=== PATIENT | female | born 1950 | race Caucasian/White ===

== ENCOUNTER → 2021-04-11 15:47 | Outpatient (CLI) | payer MEDICARE, OTHER, SELFPAY ==
[2021-04-11 16:48] LABS: Add Manual Diff / Slide Review NO; Basophils Absolute Auto 100 /uL (0-100); Eosinophils Absolute Auto 100 /uL (0-450); Hematocrit 40.6 % (36-46); Hemoglobin 13.8 g/dL (12.0-16.0); Lymphocytes Absolute Auto 1700 /uL (1100-4500); Lymphocytes Percent Auto 24.2 % (25-40); Mean Corpuscular HGB Conc 33.9 % (30-36); Mean Corpuscular Hemoglobin 31.2 PG (26-34); Mean Corpuscular Volume 92.2 fL (80-100); Monocytes Absolute Auto 600 /uL (0-900); Monocytes Percent Auto 8.5 % (3-14); Neutrophils Absolute Auto 4500 /uL (1500-7000); Neutrophils Percent Auto 64.3 % (50-75); Platelet Count 308 X10^3/uL (150-400); Red Blood Cell Count 4.41 X10^6/uL (4.0-5.2); Red Cell Distribution Width 13.3 % (11.6-14.8)
[2021-04-11 16:54] LABS: Hemoglobin A1C% w Est Avg Glu 5.4 % (4.0-6.0)
[2021-04-11 17:34] LABS: BUN Creatinine Ratio 24.7 (6-22); Blood Urea Nitrogen 19 mg/dL (7-17); Calcium 10.1 mg/dL (8.4-10.2); Carbon Dioxide 32 mmol/L (22-32); Chloride 101 mmol/L (98-107); Estimated Glomerular Filt Rate > 60.0 mL/min (>60); Glucose 99 mg/dL (80-110); HEMOLYSIS < 15 (0-50); Potassium 4.3 mmol/L (3.4-5.1); Sodium 140 mmol/L (137-145)
== END ==
PROVIDERS: PCP Internal Medicine; Referring Provider Orthopaedic Surgery; Visit Provider Orthopaedic Surgery
DX: Z01.818 Encounter for other preprocedural examination (principal); R73.9 Hyperglycemia, unspecified; M25.561 Pain in right knee; Z01.812 Encounter for preprocedural laboratory examination
CPT/HCPCS: 36415; 80048; 83036; 85025; 93005; 93010

== ENCOUNTER → 2021-05-02 10:07 | Outpatient (CLI) | payer MEDICARE, OTHER, SELFPAY ==
[2021-05-02 11:15] LABS: COVID19 -Nasal RAPID Negative (Negative)
== END ==
PROVIDERS: PCP Internal Medicine; Visit Provider Nurse Practitioner Family
DX: Z20.822 Contact with and (suspected) exposure to COVID-19 (principal)
CPT/HCPCS: 87635; C9803

== ENCOUNTER 2021-05-05 06:02 | Day surgery (SDC) | payer MEDICARE, OTHER, SELFPAY ==
[2021-04-28 13:44] VITALS: BMI 22.3
[2021-05-05] VITALS (16 sets, daily range): BP systolic 89–146; BP diastolic 44–96; PULSE 64–100; RESP 10–18; TEMP 36.2–36.7; O2SAT 91–100; BMI 22.3
--- NOTE | 2021-05-05 06:00 | DI.RAD.S_ITS ---
PROCEDURE: XR KNEE RT 1TO2V INDICATIONS: post op total knee TECHNIQUE: 2 view(s) of the knee acquired. COMPARISON: None. FINDINGS: Bones: Patient is status post knee joint arthroplasty. Hardware components are in expected positions. Visualized bony structures are intact. Soft tissues: Overlying postoperative changes are noted. IMPRESSION: Expected immediate postoperative appearance, status post total right knee arthroplasty. Dictated by: Saman Szymanski M.D. on 05/05/2021 at 10:45 Approved by: Saman Szymanski M.D. on 05/05/2021 at 10:45
[2021-05-05] MEDS: ACETAMINOPHEN 325 MG TABLET 975 MG PO (06:55)
[2021-05-05] MEDS: CELECOXIB 200 MG CAPSULE PO (06:56)
[2021-05-05] MEDS: PREGABALIN 75 MG CAPSULE PO (06:56)
[2021-05-05] MEDS: LACTATED RINGERS 1,000 ML 42 ML IV (07:13)
--- NOTE | 2021-05-05 07:35 | PM.PREOP ---
Pre-operative Note COVID-19 COVID-19 status: Negative Result date/Date tested (Pos, Neg/Pending): 05/02/21 Interval Note History & Physical reviewed/Exam performed by Physician: Yes Changes to H&P: No
--- NOTE | 2021-05-05 07:36 | P.DS_ITS ---
History of Present Illness History of Present Illness Chief complaint: Right Total Knee Arthroplasty *OPB* Discharge Providers Provider Primary care physician: Billy Russell MD Consults: 05/05/21 06:00 Consult to Anesthesiology Routine Comment: Consulting Provider: Anesthesiologist Reason for consultation: Regional block for post operative pain control Discharge provider: Peter Reyes MD Exam Vital Signs (past 8 hours): - 05/05/21 06:48 Temperature 97.6 F Pulse Rate 100 H Respiratory Rate 18 Blood Pressure 146/89 H Pulse Oximetry 100 Oxygen Delivery Method Room Air [facility] Medical History (Updated 04/28/21 @ 14:09 by Dina Salas RN) Asthma Eczema Osteoarthritis Surgical History (Updated 10/05/17 @ 06:12 by Conversion Provider) History of tonsillectomy Status post dilation and curettage Family History (Updated 09/08/16 @ 00:00 by Conversion Provider) Grandmother Stroke Sister Age: 64 Hypertension High cholesterol Social History household members: spouse Smoking Status: Never smoker alcohol intake: current Discharge Plan Discharge orders & Medications Prescriptions: No Action ibuprofen [Advil] 200 mg Tablet 400 mg PO DAILY 0RF albuterol sulfate 90 mcg/actuation Hfa Aerosol Inhaler 2 puff INHALATION Q4-6H PRN (Reason: Asthma) 0RF Follow up/Referrals: Billy Russell MD [Primary Care Provider] - Discharge Data Primary Care Provider: Billy Russell Attending Provider: Peter Reyes
--- NOTE | 2021-05-05 07:36 | PM.OP.1 ---
Operative Date/Time/Diagnoses Date of procedure: 05/05/21 Time of procedure: 09:18 Pre-op diagnosis: Right knee osteoarthritis Post-op diagnosis: same Procedure & Clinicians Procedure: Right total knee replacement Same procedure as scheduled: Yes Indications: The patient has had progressively worsening right knee pain with radiographic changes consistent with arthritis. Non-operative management has failed and the patient has requested total knee replacement. The risks, benefits and alternatives to surgery were discussed with the patient prior to proceeding. Risks discussed included, but were not limited to, failure to relieve pain, stiffness, infection, nerve damage, deep venous thrombosis, pulmonary embolism, stroke, coma, heart attack, permanent paralysis and , as well as the potential need for eventual revision of the prosthetic. Surgeon: Peter Reyes Field Radio Operator: Uvaldo Montana Click Yes if Unassisted: No Anesthesia Type: General, Spinal and Local Operative Notes Findings: Severe lateral and moderate medial and patellofemoral osteoarthritis Closure Type: primary Specimen(s): none sent Prosthetic devices, grafts, tissues, transplants, or devices: Implants used in this procedure were manufactured by the [employer] and [employer] and included the BCS II Journey total knee replacement with a size 3 Oxinium femoral component, a size 3 right non porous tibial base plate, a 9 mm cross-linked polyethylene tibial insert and a 29 mm oval Jessica II patella. Applied: implant(s) Estimated Blood Loss (mL): 25 Blood products transfused: none Tourniquet time (min): 43 Procedure in detail: The patient was seen in the pre-operative area, where the patient identified the right knee as the operative site and this was marked with my initials. The patient received pre-operative antibiotics, and was taken to the operating room and placed on the operative table in the supine position. After satisfactory anesthesia, a barometers calibrator out was performed. The right leg was encircled with a tourniquet about the proximal thigh, and the leg was prepared from the toes to the tourniquet with ChloroPrep in the usual fashion and draped through sterile drapes. The leg was elevated and exsanguinated with Eschmark bandage and the tourniquet inflated to 250 mmHg pressure. The knee was approached through an approximately 14 cm incision centered over the patella and carried into the knee through a medial parapatellar arthrotomy. The anterior osteophytes and soft tissues were removed. The rotational landmarks of Latimer's line and the transepicondylar axis were marked on the femur with electrocautery, and intramedullary guide holes for the femur and tibia were created. The distal femoral cut was made in 6 degrees of valgus using the intramedullary guide at the primary cut setting. The proximal tibial cut was then made using the intramedullary guide, taking 9 mm of bone off the less involved side. The extension gap was checked and the rotation of the femoral component confirmed with the gap balancing system. The anterior, posterior and chamfer cuts were then made. The posterior osteophytes and soft tissues were then removed. The posterior capsule was injected with part of a mixture of 50 ml 0.25% Marcaine mixed with 20 ml Exparel and 4 mg of morphine for post-operative pain control. The remainder of this mixture was injected into the capsule and subcutaneous tissues during cement curing. The tibia was prepared with the rotation set by an extra medullary guide. Trial tibial and femoral components were then placed and the intercondylar notch cut through the femoral trial. Range of motion was 0-135 degrees, with good stability throughout the range. The patella was then cut to accommodate the patellar prosthetic. There was no need for a lateral release. The trials were then removed, and the femoral hole plugged with a bone plug. The bone was prepared with pulsatile lavage, and dried with a sponge. Cement was applied and the final prosthetics placed. Excess cement was removed during and after cement curing. After confirming there was no extruded cement posteriorly, the final tibial insert was placed. The knee was copiously irrigated and the tourniquet deflated. Hemostasis was obtained. The capsule was closed with interrupted # 2 polyester suture. The subcutaneous layer was closed with 3-0 Vicryl, and the skin with a running 3-0 V-Lock suture and Dermabond. An Aquacel Ag dressing was applied and the patient was taken to recovery having tolerated the procedure well. Post-operative Condition: stable Disposition: PACU Plan for aftercare: The patient will be maintained on a standard total knee replacement protocol with weight bearing as tolerated. The patient will receive aspirin and sequential compression devices for DVT prophylaxis. The patient will be discharged home when safe for the home environment.
[2021-05-05] MEDS: CEFAZOLIN 2 GM/20 ML SYRINGE IV (08:03)
[2021-05-05] MEDS: TRANEXAMIC ACID 1,000 MG VIAL 1000 MG INJ ×2 (08:05→08:55)
--- NOTE | 2021-05-05 08:12 | SUR.OPER ---
Supine on padded OR bed. Pillow under head, arms secured on padded armboards <90 degree abduction. Safety belt across torso. Non-operative leg secured with tape over blanket over lower leg. Operative leg secured in DeMayo positioner and in control of the Surgeon.
[2021-05-05] MEDS: BUPIVACAINE LIPOSOME 266 MG/20 ML VIAL INJ (08:24)
[2021-05-05] MEDS: BUPIVACAINE 0.25% (PF) 60 ML, EPINEPHrine 0.3 MG INJ (08:24)
[2021-05-05] MEDS: MORPHINE 4 MG/ML INJ INJ (08:24)
[2021-05-05] MEDS: fentaNYL 100 MCG/2 ML INJ IV (09:40)
--- NOTE | 2021-05-05 11:11 | SUR.PHASEI ---
Bed now available, report called to Pooja, pt transported up to room 212 and left with Pooja and left in stable condition. Bed low, locked SACD'S on and call light near by.
[2021-05-05] MEDS: LACTATED RINGERS 1,000 ML 100 ML IV ×2 (11:25→22:02)
[2021-05-05] MEDS: ONDANSETRON 4 MG/2 ML INJ IV (14:08)
--- NOTE | 2021-05-05 14:31 | PT.IIE ---
Current Diagnoses Unilateral primary osteoarthritis, right knee (05/05/21) Surgery Performed Operation Date: 05/05/21 07:45 Actual Procedures p Total Knee Arthroplasty(Right) - Peter Reyes MD Surgical History History of tonsillectomy Status post dilation and curettage Medical History (Last Updated 04/28/21 @ 14:09 by Dina Salas RN) Asthma Eczema Osteoarthritis Physical Therapy Inpatient Evaluation/Re-Eval M1 PT/OT-IP Prior Functional Status Start: 05/05/21 11:19 Freq: NEEDED Status: Active Protocol: Document 05/05/21 14:31 JG (Rec: 05/05/21 15:19 J [id number]) Medical Review Prior Functional Status Medical History Reviewed Yes Diet/Fluid Consistency Regular Communication Pt was able communicate fully Mobility and Gait Pt was limited with transfers and amb due to pain. Pt avoids stairs if possible. Indep w/o AD. Other than stairs, no meaningful limit. Activities of Daily Living and IADL's Indep w/all ADLs Prior Functional Level (Other details) Pt feels that she does better, kaylan w/bilat knee pain, when she works out and does yoga Social History Household Members spouse Living Arrangements House Number of Floors (Floors) One Floor Number of Stairs To Enter/Railing? 2 steps to enter, no railing Home Environment Standard Height Toilet,Walk in Shower,Built-In Shower Seat Home Equipment Front Wheel Walker,Hand Held Shower,Long Handled Shoe Horn, Sock Aid,Grab Bars In Shower Employment Status Retired Additional Social History Comment Has two daughters. Erik was in room, asked caregiving questions, and will serve as caregiver. He has no physical or time limitations. M2 PT-IP Current Condition Start: 05/05/21 11:19 Freq: NEEDED Status: Active Protocol: Document 05/05/21 14:31 JG (Rec: 05/05/21 15:19 J [id number]) Physical Therapy Current Condition Current Condition Evaluation Date 05/05/21 Treatment Diagnosis S/P R TKA, difficulty walking, limited mobility 2 pain, limited R knee ROM Onset Date 05/05/21 M3 PT-IP Subjective Start: 05/05/21 11:19 Freq: NEEDED Status: Active Protocol: Document 05/05/21 14:31 JG (Rec: 05/05/21 15:19 Karley [id number]) Subjective Physical Therapy Visit Type Type Initial Evaluation Visit Start Time 13:35 Visit Stop Time 14:31 Total Visit Minutes 56 Notes SPT Cristin was directly supervised by DARLENE Courtney Number of IMCU NURSE Visits 0 Physical Therapy Visit Comments Patient Comments Pt said she is comparing this R TKA to labor and 3 D&C due to hemmoraging and TKA is harder. Pt asked several questions about norms after TKA surgery and sought to validate that her response was WNL. Pt states that she has been feeling woozy since surgery which has gradually been decreasing. Patient Goals Amb and transfer without pain. Workout without pain. Therapy Pain Assessment Pain When Pain Assessed rest, move Pain Present Pain Present Denied Pain Location Right Knee Intensity 0 Scale Used Numeric (0 - 10) M4 PT-IP Mobility and Gait Start: 05/05/21 11:19 Freq: NEEDED Status: Active Protocol: Document 05/05/21 14:31 SANTY (Rec: 05/05/21 15:19 Karley [id number]) PT-Bed Mobility Assessment Rolling Type of Rolling Roll to Left Level of Assist Standby Assistance Supine to Sit Supine to Sit Standby Assistance Scooting Scooting to Edge of Bed Standby Assistance PT-Transfer Assessment Sit to and From Stand Sit to and from Stand Minimal Assistance,1 Person Assistance Equipment Transfer Assistive Device Gait Belt,Front Wheeled Walker Transfers Transfer Destination Chair,Toilet Transfer Technique from amb Transfer Ability Level of Assist Minimal Assistance,1 Person Assistance Comments Mobility Comments Pt typically has low BP and is currently mildy nauseous. In bed, vitals were: 121/79, 71 bpm. Due to this pt stayed at EOB, in standing, and seated for 1-2 minutes before progressing to next transfer or gait activity. Pt was SBA for bed mob w/cueing for strageties and confidence. During transfers and gait, min A w/FWW and gait belt was req due to nausea and decreased sensation in R LE. Pt also had difficulty moving her R foot from a PF and inverted resting foot position which is atypical. Pt was able to flatten R foot with SPT tactile and verbal cueing as well as increased attention and time moving through R stance phase. Pt became had increase in nausea and clammy sensation during mobility. This resulted in vomiting while attempting to void on the toilet. After rest, pt was able to amb to bed w/FWW and min A. Pt was given anti- nausea med by RN. At EOB vitals were: 138/88, 91 bpm. In standing vitals were: 156/ 81, 81 bpm. In chair vitals were: 139/87, 85 bpm. On toilet vitals were: 130/83, 86 bpm. In bed at end of session vitals were: 11/78, 88 bpm. Gait Assessment Gait Gait Assistance Required: Minimum Assistance,1 Person Assist Distance (Feet) 25 Able to Maintain Weight Bearing Status Yes During Gait Assistive Devices Assistive Device Gait Belt,Front Wheeled Walker Gait Deviations General Gait Pattern Antalgic,Decreased Stride Length,Decreased Feet Clearance Factors Limiting Gait Function Factors Limiting Gait Function Decreased Activity Tolerance, Decreased Sensation Comments Gait Comments See mobility comments Stair Climbing Assessment Comments Stair Climbing Comments Stairs not assessed PT-Balance Assessment Sitting Balance and Reactions Static Sitting Balance Ability Normal Standing Balance and Reactions Static Standing Balance Ability Good Dynamic Standing Balance Ability Good M5 PT-IP Objective Assessments Start: 05/05/21 11:19 Freq: NEEDED Status: Active Protocol: Document 05/05/21 14:31 JG (Rec: 05/05/21 15:19 [id number]) Orientation Orientation/Cognition Level of Alertness Alert Orientation Name,Place,Situation Language Function Ability No Deficits Noted Safety Awareness Understands Safety Issues Memory Description No Deficits Noted Gross Range of Motion Lower Extremity ROM Assessment Right Impaired Strength Upper Extremity Strength Assessment Within Functional Limits Lower Extremity Strength Assessment Right Impaired Comments Strength Comments L LE strength gross 5/5. R eversion and DF unable to actively move through range in supine, but was able to active latia in seated and standing. Decreased R DF was noted in seated and standing. Coordination Assessment Gross Coordination Gross Coordination WNL Sensation Assessment Sensation Gross Sensation Right LE Impaired Light Touch Impaired Proprioception (Position) Impaired Sensation Description Numbness Muscle Tone Muscle Tone WNL Yes M6 PT-IP Treatment Start: 05/05/21 11:19 Freq: NEEDED Status: Active Protocol: Document 05/05/21 14:31 JG (Rec: 05/05/21 15:19 [id number]) Physical Therapy Treatment Education Education Provided Precautions,Weight Bearing Status,Post-Op Packet,Safety M7 PT-IP Assessment and Plan Start: 05/05/21 11:19 Freq: NEEDED Status: Active Protocol: Document 05/05/21 14:31 SANTY (Rec: 05/05/21 15:19 JChelsi [id number]) PT Summary Assessment and Plan Potential Rehabilitation Potential Excellent Status of Condition at Evaluation Evolving Summary Impairments ROM,Strength,Sensation, Transfers,Gait,Activity Tolerance Assessment Summary Pt is 70 year old female seen same-day after R TKA. Pt previously was indep in all ADLs w/o AD and was not limited, other than stairs, in transfers and amb. Pt did experience significant bilat knee pain which resulted in the decision to undergo the TKA surgery. Pt is currently SBA for bed mob and min A w/ FWW for transfers and amb. Pt did experience significant increase in nausea and clammy sensation during mobility which should be resolved before discharging home. Pt was able to manage FWW and gait pattern w/min cues from SPT. Pt demostrated decreased R LE and foot sensation as well as R foot AROM eversion and DF during supine, seated, and standing positions which is limiting pt's able to amb. Pt also has limited R knee ROM which are limiting her transfers and amb. Pt will benefit from OP PT for knee PROM, AROM, and strength which will increase pt's activity tolerance and decrease knee pain. Goals Bed Mobility Goal Independent Transfer Goal Independent,Front Wheeled Walker Gait Goal Independent,Front Wheel Walker Gait Distance 250 Other Goals Pt is able to ascend/descend 2 stairs safely Pt is able to sit>stand, amb 30 feet, and stand>sit without R foot inversion and nausea Days to Meet Goals 2 Frequency of Treatment Frequency Of Treatment Twice a Day Treatment Plan Physical Therapy Treatment Plan Bed Mobility Training,Transfer Training,Gait Training, Therapeutic Exercise,Post Op Education,Discharge Planning, Hot or Cold Pack,Neuromuscular Re-ed,Manual Therapy Other Recommendations and Next Treatment Reassess R foot ROM (kaylan Focus eversion and DF). Activity tolerance w/transfers and amb. Stair training. Seated and bed exercises Weight Bearing Status Weight Bearing Status Weight Bear as Tolerated Recommendations To Nursing Amount of Assist Needed 1 Person Assist Discharge Recommendations PT Discharge Recommendations Home,Home with Assistance, Outpatient PT Transportation Needs at Discharge Private Vehicle Treatment was provided by Cristin Aj, SPT and supervised by Roz Pollock, PT. I personally reviewed this note and agree with its contents.
[2021-05-05] MEDS: ACETAMINOPHEN 325 MG TABLET 650 MG PO ×2 (15:27→21:05)
[2021-05-05] MEDS: METOCLOPRAMIDE 10 MG/2 ML INJ IV (17:34)
--- NOTE | 2021-05-05 18:28 | PC.NURSE ---
pt gets nauseous every time she gets up. BP stable when standing. medicated with zofran and reglan. pain minimal 06/16.
[2021-05-05] MEDS: IBUPROFEN 400 MG TABLET PO (21:05)
[2021-05-05] MEDS: ASPIRIN EC 81 MG TABLET PO (21:05)
[2021-05-05] MEDS: DOCUSATE 100 MG CAPSULE PO (21:06)
[2021-05-06] VITALS: BP 146/71; PULSE 77; RESP 18; TEMP 36.7; O2SAT 100
[2021-05-06] MEDS: OXYCODONE/ACETAMINOPHEN 5/325 TABLET 1 TAB PO ×3 (00:06→09:01)
[2021-05-06 04:00] VITALS: BP 119/68; PULSE 79; RESP 16; TEMP 36.6; O2SAT 100
[2021-05-06] MEDS: IBUPROFEN 400 MG TABLET PO ×3 (04:04→13:44)
[2021-05-06 05:46] LABS: Hematocrit 35.3 % (36-46); Hemoglobin 11.7 g/dL (12.0-16.0)
--- NOTE | 2021-05-06 07:39 | P.DS_ITS ---
History of Present Illness History of Present Illness Date Patient Seen: 05/06/21 Time Patient Seen: 07:39 Chief complaint: Right Total Knee Arthroplasty *OPB* Narrative: The history and physical is contained in the chart previously completed note. Please refer to that note for this information. Discharge Providers Provider Date of admission: May 05, 2021 Discharge Date: 05/06/21 Primary care physician: Billy Russell MD Consults: 05/05/21 11:13 Consult to Discharge Planning Routine Comment: Consult to Physical Therapy Evaluate & Treat Comment: Physician Instructions: postop TKA protocol Discharge provider: Peter Reyes MD Summary Hospital Course Discharge Diagnosis: 1. Right knee osteoarthritis 2. Post hemorrhagic anemia Hospital Course: The patient was admitted to the hospital and taken directly to the operating room on May 05, 2021. She underwent a right total knee replacement without complications. Postoperatively she did have some nausea which prevented her discharge on the day of surgery. On postoperative day 1 this had resolved and she felt ready for discharge. Status at Discharge Cognitive/behavioral status at discharge: at baseline, oriented Functional status at discharge: uses cane/walker Overall status at discharge: patient is progressing back to baseline Time Spent with Patient Time spent: Less than 30 minutes Exam Vital Signs (past 8 hours): - 05/06/21 00:00 05/06/21 04:00 Temperature 98.0 F 97.8 F Pulse Rate 77 79 Respiratory Rate 18 16 Blood Pressure 146/71 H 119/68 Pulse Oximetry 100 100 Oxygen Delivery Method Room Air Oxygen Flow Rate 0 Narrative Exam Narrative: Right knee wound is dressed with no drainage on the bandage. Calf is soft. Light touch and motion are intact in the right lower extremity. Objective Labs Result Diagrams: 05/06/21 05:11 Labs: Laboratory Results - last 24 hr 05/06/21 05:11 Hgb 11.7 L Hct 35.3 L PFSH Medical History (Updated 04/28/21 @ 14:09 by Dina Salas RN) Asthma Eczema Osteoarthritis Surgical History (Updated 10/05/17 @ 06:12 by Conversion Provider) History of tonsillectomy Status post dilation and curettage Family History (Updated 09/08/16 @ 00:00 by Conversion Provider) Grandmother Stroke Sister Age: 64 Hypertension High cholesterol Social History household members: spouse Smoking Status: Never smoker alcohol intake: current Discharge Assessment & Plan Assessment and Plan Assessment: Stable postoperative day 1 status post right total knee replacement. She had some postoperative nausea which has resolved. She has a mild post hemorrhagic anemia which will not require specific treatment. Plan of Treatment: Discharged home today after physical therapy this morning. Follow-up in my office in 10-14 days. Discharge prescriptions for oxycodone and hydroxyzine have been provided. Instructions for the use of aspirin for DVT prophylaxis and ibuprofen and Tylenol for pain control have also been given. Discharge Plan Discharge Plan Patient Disposition: Home Discharge orders & Medications Discharge Orders: Discharge (Order); Ordered 05/06/21 Ordered By: Peter Reyes Prescriptions: New acetaminophen 325 mg Tablet 650 mg PO TID 30 Days Qty: 180 0RF aspirin 81 mg Tablet,Delayed Release (Dr/Ec) 81 mg PO BID 42 Days Qty: 84 0RF ibuprofen 400 mg Tablet 400 mg PO Q4HR 30 Days 0RF oxycodone 5 mg Tablet 5 mg PO Q4H PRN (Reason: Pain, Moderate (4-6)) Qty: 40 0RF hydroxyzine pamoate 25 mg Capsule 25 mg PO Q6HR PRN (Reason: Nausea) Qty: 30 0RF Continued albuterol sulfate 90 mcg/actuation Hfa Aerosol Inhaler 2 puff INHALATION Q4-6H PRN (Reason: Asthma) 0RF Discontinued ibuprofen [Advil] 200 mg Tablet 400 mg PO DAILY 0RF Follow up/Referrals: Peter Reyes MD [Physician] - 2 Weeks Billy Russell MD [Primary Care Provider] - Diet/Activity/Treatments Diet: Diet as Tolerated and Regular Activity: You may bear weight as tolerated on your right knee. Cold/Heat Therapy: You may apply ice to the right knee for 15 minutes every hour as needed for pain control. Skin/Wound/Dressing Care Report to your healthcare provider any signs of infection, such as:: chills, fev er, night sweats, increased pain, unusual drainage and unusual redness Dressing: You may remove the Edi wrap 3 days after surgery and shower normally. Leave the deeper dressing in place until your follow-up. If the central strip of the deeper dressing becomes saturated with either water or blood, please call the office to have it changed. Visit Report/Discharge Packet Instructions: DI for Knee Replacement Stand Alone Forms: Surgery Discharge Discharge Data Primary Care Provider: Billy Russell Attending Provider: Peter Reyes Quality VTE Deep Vein Thrombosis/Pulmonary Embolism Present on Admission: No
[2021-05-06 07:40] VITALS: BP 137/81; PULSE 79; RESP 17; TEMP 37.2; O2SAT 100
[2021-05-06] MEDS: ASPIRIN EC 81 MG TABLET PO (09:00)
[2021-05-06] MEDS: ACETAMINOPHEN 325 MG TABLET 650 MG PO (09:00)
[2021-05-06] MEDS: DOCUSATE 100 MG CAPSULE PO (09:00)
--- NOTE | 2021-05-06 10:13 | PC.NURSE ---
Patients r.knee dressing with aquacel and justyn wrap. Gave patient one percocet and this has been effective for care. She has also gottn ibuprofen and tylenol. Patient is working with physical therapy now. She will be discharging home later. CMS wnl x2.
--- NOTE | 2021-05-06 10:45 | PT.IPTN ---
Current Diagnoses Unilateral primary osteoarthritis, right knee (05/05/21) Surgery Performed Operation Date: 05/05/21 07:45 Actual Procedures p Total Knee Arthroplasty(Right) - Peter Reyes MD Physical Therapy Treatment Note M2 PT-IP Current Condition Start: 05/05/21 11:19 Freq: NEEDED Status: Active Protocol: Document 05/05/21 14:31 JG (Rec: 05/05/21 15:19 JG [id number]) Physical Therapy Current Condition Current Condition Evaluation Date 05/05/21 Treatment Diagnosis S/P R TKA, difficulty walking, limited mobility 2 pain, limited R knee ROM Onset Date 05/05/21 M3 PT-IP Subjective Start: 05/05/21 11:19 Freq: NEEDED Status: Active Protocol: Document 05/06/21 10:04 KS (Rec: 05/06/21 12:29 KS [id number]) Subjective Physical Therapy Visit Type Type Treatment Note Visit Start Time 10:04 Visit Stop Time 10:45 Total Visit Minutes 41 Notes Pts present for caregiver training. Number of NURSE OBGYN Visits 1 Physical Therapy Visit Comments Patient Comments Feeling much better today. M4 PT-IP Mobility and Gait Start: 05/05/21 11:19 Freq: NEEDED Status: Active Protocol: Document 05/06/21 10:04 KS (Rec: 05/06/21 12:29 KS [id number]) PT-Bed Mobility Assessment Sit to Supine Sit to Supine Standby Assistance Scooting Scooting to Edge of Bed Standby Assistance PT-Transfer Assessment Sit to and From Stand Sit to and from Stand Standby Assistance,1 Person Assistance,Use of Upper Extremities Equipment Transfer Assistive Device Gait Belt,Front Wheeled Walker Transfers Transfer Destination Bed Transfer Technique Pt ambulated w/ FWW Transfer Ability Level of Assist Contact Guard Assistance,1 Person Assistance,Use of Upper Extremities Comments Mobility Comments Pt in chair upon arrival from therapy w/ in room. Demonstrated gaitbelt application to pts , who was able to apply safely. Pt sit<>Stand w/ FWW SBA, no dizziness or nausea. Pt then ambulated ~100 ft to stairs SBA to CGA w/ FWW w/ cues for equal step length. Pts gait improved w/ distance. She then ascended/descended 3 steps w/ step to pattern and HOSPICE HOME HEALTH AIDE provided by , no rails and ambulated additional ~100 ft back to room w/ FWW and SBA . hudband gave cues for equal step length. She returned to bed, demonstrated gait belt use for self assist of RLE. Reveiwed LE exercises including ankle pumps, quad sets, heel slides, and glute sets. Pt left in bed w/ in room, SCDs on and all needs in reach. Gait Assessment Gait Gait Assistance Required: Standby Assistance Distance (Feet) 200 Able to Maintain Weight Bearing Status Yes During Gait Assistive Devices Assistive Device Gait Belt,Front Wheeled Walker Gait Deviations General Gait Pattern Antalgic,Decreased Stride Length,Decreased Feet Clearance,Step-to Gait Factors Limiting Gait Function Factors Limiting Gait Function Decreased Activity Tolerance, Decreased Sensation Comments Gait Comments Pt ambulated ~200 ft w/ FWW SBA. She intially ambulated w/ step to pattern but was able to improve to step through w/ cues and no increase in pain. Stair Climbing Assessment Evaluation Level of Assist On Stairs Minimal Assistance Devices Stair Climbing Assistive Devices None Technique/Endurance Stair Climbing Direction Ascend and Descend Stair Climbing Technique Step to Step Number of Steps Climbed 3 Stair Climbing Set # Repetitions (reps) 1 Comments Stair Climbing Comments Pt ascended/descended 3 steps w/o rails but HOSPICE HOME HEALTH AIDE provided by and step to pattern w/ cues for sequencing. Pt and state they feel safe to complete 2 steps leading into home. PT-Balance Assessment Sitting Balance and Reactions Static Sitting Balance Ability Normal Dynamic Sitting Balance Ability Good Standing Balance and Reactions Static Standing Balance Ability Good Dynamic Standing Balance Ability Good Device Used FWW M5 PT-IP Objective Assessments Start: 05/05/21 11:19 Freq: NEEDED Status: Active Protocol: Document 05/05/21 14:31 (Rec: 05/05/21 15:19 [id number]) Orientation Orientation/Cognition Level of Alertness Alert Orientation Name,Place,Situation Language Function Ability No Deficits Noted Safety Awareness Understands Safety Issues Memory Description No Deficits Noted Gross Range of Motion Lower Extremity ROM Assessment Right Impaired Strength Upper Extremity Strength Assessment Within Functional Limits Lower Extremity Strength Assessment Right Impaired Comments Strength Comments L LE strength gross 5/5. R eversion and DF unable to actively move through range in supine, but was able to active latia in seated and standing. Decreased R DF was noted in seated and standing. Coordination Assessment Gross Coordination Gross Coordination WNL Sensation Assessment Sensation Gross Sensation Right LE Impaired Light Touch Impaired Proprioception (Position) Impaired Sensation Description Numbness Muscle Tone Muscle Tone WNL Yes M6 PT-IP Treatment Start: 05/05/21 11:19 Freq: NEEDED Status: Active Protocol: Document 05/06/21 10:04 KS (Rec: 05/06/21 12:29 KS [id number]) Physical Therapy Treatment Exercises Exercises Ankle Pumps,Gluteal Sets,Quad Sets,Heel Slides Education Education Provided Precautions,Weight Bearing Status,Post-Op Packet,Safety M7 PT-IP Assessment and Plan Start: 05/05/21 11:19 Freq: NEEDED Status: Active Protocol: Document 05/06/21 10:04 KS (Rec: 05/06/21 12:29 KS [id number]) PT Summary Assessment and Plan Potential Rehabilitation Potential Excellent Status of Condition at Evaluation Evolving Summary Impairments ROM,Strength,Sensation, Transfers,Gait,Activity Tolerance Assessment Summary Pt SBA to CGA for all bed mobility, transfers, gait and HOSPICE HOME HEALTH AIDE for stairs. She was able to ambulate ~200 ft w/ FWW and gait improved to step through pattern w/ distance and cues. Able to use gaitbelt for RLE assistance into bed. Pts able to provide appropriate gait belt application, cues and assist throughout treatment. Both pt and state they feel safe to return home. Pt will benefit from outpatient therapy to assess strength and ROM deficits, which she has schedule to begin on Wednesday. Goals Bed Mobility Goal Independent Transfer Goal Independent,Front Wheeled Walker Gait Goal Independent,Front Wheel Walker Gait Distance 250 Other Goals Pt is able to ascend/descend 2 stairs safely Pt is able to sit>stand, amb 30 feet, and stand>sit without R foot inversion and nausea Days to Meet Goals 2 Frequency of Treatment Frequency Of Treatment Twice a Day Treatment Plan Physical Therapy Treatment Plan Bed Mobility Training,Transfer Training,Gait Training, Therapeutic Exercise,Post Op Education,Discharge Planning, Hot or Cold Pack,Neuromuscular Re-ed,Manual Therapy Other Recommendations and Next Treatment Reassess R foot ROM ([place] Focus eversion and DF). Activity tolerance w/transfers and amb. Stair training. Seated and bed exercises Weight Bearing Status Weight Bearing Status Weight Bear as Tolerated Recommendations To Nursing Amount of Assist Needed 1 Person Assist Discharge Recommendations PT Discharge Recommendations Home,Home with Assistance, Outpatient PT Transportation Needs at Discharge Private Vehicle
[2021-05-06 12:15] VITALS: BP 136/98; PULSE 72; RESP 16; TEMP 36.9; O2SAT 100
[2021-05-06] MEDS: OXYCODONE IR 5 MG TABLET PO (13:44)
== END 2021-05-06 14:00 | disposition home or self-care (01) ==
LOC: OR 06:07 → AC 06:07
PROVIDERS: PCP Internal Medicine; Referring Provider Orthopaedic Surgery; Visit Provider Orthopaedic Surgery
PROC: 0SRC0JZ Replacement of Right Knee Joint with Synthetic Substitute, Open Approach (ICD-10-PCS; CPT 27447; principal; 2021-05-05 07:45)
DX: M17.11 Unilateral primary osteoarthritis, right knee (principal); J45.909 Unspecified asthma, uncomplicated
CPT/HCPCS: 27447; 36415; 73560; 85014; 85018; 97110; 97116; 97161; 97530; C1776; C9290; J0171; J0690; J1100; J2250; J2270; J2274; J2405; J2704; J2765; J3010